=== PATIENT | female | born 1980 | race African-American/Black ===

== ENCOUNTER 2021-03-16 13:41 | Observation (INO) | payer OTHER ==
[2021-03-16 15:04] LABS: Bilirubin Neg (Negative); Blood, Urine 250 (Negative); Clarity Clear (Clear); Glucose, Urine (Dipstick) Normal (Negative); Ketone, Urine Negative (Negative); Leukocyte 100 (Negative); Nitrite Negative (Negative); Protein, Urine (Dipstick) 30 mg/dl (Neg-Trace); Urobilinogen Normal mg/dL (Less than 2)
[2021-03-16 15:14] LABS: RBC/HPF 0-3 HPF (0-3); Squamous Epithelial 0-3 HPF (0-3)
[2021-03-16 15:15] LABS: Bacteria/HPF Rare-Few HPF (None Seen)
[2021-03-16 15:34] LABS: #Basophils 0.1 10x3/uL (0.0-0.2); #Monocytes 1.1 10x3/uL (0.0-1.1); #Neutrophils 12.1 10x3/uL (1.5-8.4); %Basophils 0.3 % (0.0-2.0); %Eosinophils 0.2 % (0.0-6.0); %Lymphocytes 7.2 % (18.0-47.0); %Monocytes 7.7 % (0.0-10.0); %Neutrophils 83.9 % (40.0-75.0); Hemoglobin 6.5 g/dL (12.0-15.5); Mean Corpuscular HGB CONC 30.5 g/dL (32.0-36.0); Mean Corpuscular Hemoglobin 21.1 pg (27.0-33.0); Mean Corpuscular Volume 69.2 fl (81.6-98.3); Mean Platelet Volume 10.2 fl (7.4-10.4); Platelet Count 283 10x3/uL (150-450); RBC Distribution Width 17.4 % (11.5-14.5); Red Blood Cell (RBC) Count 3.08 10x6/uL (3.90-5.03); White Blood Cell (WBC) Count 14.4 10x3/uL (3.5-10.5)
[2021-03-16 15:40] LABS: BHCG - Serum Negative (NEGATIVE); Pregs Control Background? CLEAR/WHITE (CLR/WHITE); Pregs Control Bar Appear? YES (CONTROL BAR)
[2021-03-16 15:41] LABS: Anion Gap 11 mmol/L (10-20); BUN (Urea Nitrogen) 12 mg/dL (7.0-18.7); Calc. Creatinine Clearance 0 mL/min (70-130); Calcium 8.5 mg/dL (7.8-10.44); Carbon Dioxide 25 mmol/L (22-29); Chloride 106 mmol/L (98-107); Glucose 111 mg/dL (70-105); Potassium 4.1 mmol/L (3.5-5.1); Sodium 138 mmol/L (136-145)
[2021-03-16 15:57] LABS: Anisocytosis SLIGHT = 6-15 cells (100X) (0-5/hpf); Hypochromia MODERATE=16-30 cells (100X) (0-5/hpf); Microcytosis MODERATE=15-30 cells (100X) (0-5/hpf); Target Cells SLIGHT = 2-5 cells (100X) (0-1/hpf)
[2021-03-16 15:58] LABS: Platelet Morphology Comment Appears Adequate
[2021-03-16] MEDS ORDERED: Ondansetron PF 4 MG/2 ML Vial IVP PRN (18:04)
[2021-03-16] MEDS ORDERED: Ondansetron ODT 4 MG TAB PO PRN (18:04)
[2021-03-16 18:12] LABS: INR-International Normal Ratio 0.9; PTT 20.1 sec (22.0-33.0); Prothrombin Time 10.5 sec (9.5-12.1)
[2021-03-16] MEDS ORDERED: Acetaminophen 500 MG TAB ONE (18:29)
[2021-03-16 18:46] LABS: SARS-CoV-2 NAA Rapid Test Not Detected (NotDetected)
[2021-03-16] MEDS ORDERED: Tranexamic Acid 1,000 MG in Sodium Chloride 0.9% 250 ML 250 ML IVPB SCH (20:00)
[2021-03-16] MEDS ORDERED: Tranexamic Acid 1,000 MG, Admixture Fee 1 EACH in Sodium Chloride 0.9% 250 ML 250 ML IVPB SCH (20:30)
[2021-03-16] MEDS ORDERED: Naproxen 500 MG TAB PO SCH (21:00)
[2021-03-16] MEDS ORDERED: Cyclobenzaprine 10 MG TAB PO SCH (21:00)
[2021-03-16 23:06] VITALS: BMI 29.0
[2021-03-17] MEDS: Acetaminophen 325 MG TAB PO PRN ×2 (00:42→06:30)
[2021-03-17 02:32] LABS: Hemoglobin 8.3 g/dL (12.0-15.5); Mean Corpuscular HGB CONC 33.1 g/dL (32.0-36.0); Mean Corpuscular Hemoglobin 24.3 pg (27.0-33.0); Mean Corpuscular Volume 73.6 fl (81.6-98.3); Mean Platelet Volume 10.1 fl (7.4-10.4); Platelet Count 221 10x3/uL (150-450); RBC Distribution Width 19.2 % (11.5-14.5); Red Blood Cell (RBC) Count 3.41 10x6/uL (3.90-5.03); White Blood Cell (WBC) Count 12.6 10x3/uL (3.5-10.5)
[2021-03-17] MEDS ORDERED: Methylergonovine 0.2 MG/ML VIAL ONE (08:21)
[2021-03-17] MEDS ORDERED: CEFAZOLIN 2 GM in Premix Bag 1 BAG IVPB SCH (10:15)
[2021-03-17] MEDS ORDERED: Tranexamic Acid 1,000 MG in Sodium Chloride 0.9% 250 ML 250 ML IVPB SCH (10:30)
[2021-03-17] MEDS ORDERED: CEFAZOLIN 1 GM VIAL ONE (10:37)
[2021-03-17] MEDS ORDERED: Tranexamic Acid 1,000 MG/10 ML VIAL ONE ×2 (10:37→12:56)
[2021-03-17] MEDS ORDERED: PROPOFOL 20 ML ONE (10:43)
[2021-03-17] MEDS ORDERED: Rocuronium Bromide 10 MG/ML (10ML VIAL) ONE (10:43)
[2021-03-17] MEDS ORDERED: Dexamethasone 20 MG/5 ML VIAL ONE (10:44)
[2021-03-17] MEDS ORDERED: Ondansetron PF 4 MG/2 ML Vial ONE (10:44)
[2021-03-17] MEDS ORDERED: Lidocaine 1% PF 5 ML VIAL ONE (10:44)
[2021-03-17] MEDS ORDERED: Midazolam HCl 2 mg/2 ml Vial ONE (12:11)
[2021-03-17] MEDS ORDERED: Fentanyl 100 MCG/2 ML VIAL ONE ×2 (12:11→13:14)
[2021-03-17] MEDS ORDERED: PACU-Morphine 4MG/ML VIAL SLOW IVP PRN ×2 (13:27)
[2021-03-17] MEDS ORDERED: Ondansetron HCl/PF 4 MG/2 ML Vial IVP PRN (13:27)
[2021-03-17] MEDS ORDERED: HYDROmorphone 2 MG/ML VIAL SLOW IVP PRN (13:27)
[2021-03-17] MEDS ORDERED: Promethazine HCl 25 MG/ML VIAL IM PRN (13:27)
[2021-03-17] MEDS ORDERED: Promethazine HCl 25 MG/ML VIAL IVPB PRN (13:27)
[2021-03-17] MEDS ORDERED: Meperidine HCl/PF 25 MG/ML VIAL SLOW IVP PRN (13:27)
[2021-03-17] MEDS ORDERED: Albuterol Sulfate 2.5 mg/3 ml Neb ONE (13:28)
[2021-03-17] MEDS ORDERED: Albuterol Sulfate 2.5 mg/3 ml Neb NEB SCH (13:30)
[2021-03-17 14:14] VITALS: TEMP 98.3
[2021-03-17 18:28] VITALS: BP 122/68
== END 2021-03-17 18:10 | disposition home or self-care (01) ==
LOC: CSHERS 13:41 → CSHPP 19:15 → INTOOBSV 19:15
PROVIDERS: ADMIT Obstetrics & Gynecology; ATTEND Obstetrics & Gynecology
PROC: 0UBC7ZX Excision of Cervix, Via Natural or Artificial Opening, Diagnostic (ICD-10-PCS; principal; 2021-03-17)
DX: C53.9 Malignant neoplasm of cervix uteri, unspecified (principal); D62 Acute posthemorrhagic anemia; N93.9 Abnormal uterine and vaginal bleeding, unspecified; J45.909 Unspecified asthma, uncomplicated; D25.9 Leiomyoma of uterus, unspecified; Z79.1 Long term (current) use of non-steroidal anti-inflammatories (NSAID); Z79.899 Other long term (current) drug therapy; Z98.51 Tubal ligation status; Z20.822 Contact with and (suspected) exposure to COVID-19
CPT/HCPCS: 36430; 76856; 80048; 81003; 81015; 84703; 85025; 85027; 85610; 85730; 86850; 86900; 86901; 86922; 88305; 93005; 94640; J0690; J1100; J2210; J2250; J2405; J2704; J3010; J7050; J7611; P9016; U0002

== ENCOUNTER 2021-09-20 10:43 | Outpatient (CLI) | payer OTHER | END 2021-09-20 10:44 | disposition home or self-care (01) | LOC: CSHLAB 10:43 | PROVIDERS: ATTEND Surgery | DX: Z20.822 Contact with and (suspected) exposure to COVID-19 (principal) | CPT/HCPCS: U0003; U0005 ==

== ENCOUNTER 2021-09-23 05:37 | Day surgery (SDC) | payer OTHER ==
[2021-09-20 12:04] VITALS: BMI 27.1
[2021-09-23] MEDS ORDERED: Bupivacaine 0.25% HCL 30 ML VIAL ONE (06:39)
[2021-09-23] MEDS ORDERED: EPINEPHrine 1 MG/ML AMP ONE (06:39)
[2021-09-23] MEDS ORDERED: Lidocaine 1% MPF 2 ML VIAL ONE (06:45)
[2021-09-23] MEDS ORDERED: Fentanyl 100 MCG/2 ML VIAL ONE ×3 (06:58→08:10)
[2021-09-23] MEDS ORDERED: Dexamethasone 4 mg/ml Vial ONE (06:59)
[2021-09-23] MEDS ORDERED: Ondansetron PF 4 MG/2 ML Vial ONE (06:59)
[2021-09-23] MEDS ORDERED: Lidocaine 1% PF 5 ML VIAL ONE (06:59)
[2021-09-23] MEDS ORDERED: PROPOFOL 40 ML ONE (07:02)
[2021-09-23] MEDS ORDERED: CEFAZOLIN 1 GM VIAL ONE (07:02)
[2021-09-23] MEDS ORDERED: Midazolam HCl 2 mg/2 ml Vial ONE (07:05)
[2021-09-23] MEDS ORDERED: HYDROcodone/Acetaminophen 5/325 mg Tablet PO PRN (08:13)
[2021-09-23] MEDS ORDERED: Acetaminophen 325 MG TAB PO PRN (08:13)
== END 2021-09-23 08:40 | disposition home or self-care (01) ==
LOC: CSHSDC 05:37
PROVIDERS: ATTEND Surgery
PROC: 02HV33Z Insertion of Infusion Device into Superior Vena Cava, Percutaneous Approach (ICD-10-PCS; principal; 2021-09-23)
PROC: 0JH63WZ Insertion of Totally Implantable Vascular Access Device into Chest Subcutaneous Tissue and Fascia, Percutaneous Approach (ICD-10-PCS; principal; 2021-09-23)
DX: C53.9 Malignant neoplasm of cervix uteri, unspecified (principal); J45.909 Unspecified asthma, uncomplicated
CPT/HCPCS: C1788; J0171; J0690; J1100; J1642; J2250; J2405; J2704; J3010; S0020